=== PATIENT | female | born 1985 | race Caucasian/White ===

== ENCOUNTER 2017-01-15 19:55 | Emergency (ER) | payer OTHER ==
[~2017-01-15] VITALS: Ht 165.1 cm; Wt 91.2 kg
[~2017-01-15 19:55] MED LIST: ACETAMINOPHEN650 M3 PO; ADDERALL 5 MG TA5 MG PO; ASPIRIN EC325 MG PO; ATENOLOL50 MG PO; BACTRIM DS TAB1 EACH PO; CIPROFLOXACIN500 MG PO; CO Q-10400 MG PO; CORGARD80 MG PO; CYCLOBENZAPRINE10 MG PO; CYMBALTA30 MG PO; DULOXETINE HCL30 MG PO; FENTANYL1 EAC2 TD; FISH OIL-OMEGA1 EACH PO; GABAPENTIN300 MG PO; GLUCOSAMINE1000 MG PO; HYDROCHLOROTHIA25 GM MISC; HYDROCHLOROTHIA50 MG PO; IBUPROFEN200 M1 PO; JULEBER 28 DAY1 EACH PO; LEVOTHYROXINE100 MCG PO; LEVOTHYROXINE88 MCG PO; LYRICA50 MG PO; MACROBID 100 M100 MG PO; MELOXICAM15 MG PO; METOPROLOL SUCC50 MG PO; NADOLOL80 MG PO; NORCO 10-325 T1 EACH PO; NORCO 5-325 TA1 EACH PO; OXYCODONE HCL5 MG PO; PENICILLIN V P500 MG PO; POTASSIUM CHLO20 ME1 PO; PRILOSEC40 MG PO; PRISTIQ ER100 MG PO; PROMETHAZINE HC25 M1 PO; PYRIDIUM200 MG PO; SPIRONOLACTONE100 MG PO; SPIRONOLACTONE25 MG PO; TRAMADOL HCL50 MG PO
[2017-01-15] MEDS ORDERED: PYRIDIUM200 MG PO (20:30)
[2017-01-15] MEDS ORDERED: ZOFRAN ODT4 MG PO (22:51)
[2017-01-15] MEDS ORDERED: LOMOTIL TABLET1 EACH PO (22:51)
== END 2017-01-15 23:02 | disposition home or self-care (01) ==
LOC: ED 19:55
DX: K52.9 Noninfective gastroenteritis and colitis, unspecified (principal); E03.9 Hypothyroidism, unspecified; F17.200 Nicotine dependence, unspecified, uncomplicated; Z79.899 Other long term (current) drug therapy; Z88.1 Allergy status to other antibiotic agents; Z88.0 Allergy status to penicillin; Z91.030 Bee allergy status; Z87.442 Personal history of urinary calculi
CPT/HCPCS: 80053; 83690; 84703; 85025; 96361; 96374; 99283; J2405; J7030

== ENCOUNTER 2017-08-08 13:37 | Emergency (ER) | payer OTHER ==
[~2017-08-08] VITALS: Ht 165.1 cm; Wt 91.2 kg
[~2017-08-08 13:37] MED LIST changes: +LOMOTIL TABLET1 EACH PO; +ZOFRAN ODT4 MG PO
[2017-08-08] MEDS ORDERED: CYTOMEL5 MCG PO (13:53)
--- OUTSIDE RECORDS SUMMARY | 2017-08-08 14:11 | XMS | Clinical Summary ---
Demographics + + + | Address | [address] | | | [place] [address] | + + + | Home Phone | | + + + | Preferred Language | Unknown | + + + | Marital Status | Single | + + + | Shinto Affiliation | Unknown | + + + | Race | White | + + + | Ethnic Group | Not or | + + + Author + + + | Author | [facility] | + + + | Organization | [facility] | + + + | Address | Unknown | + + + | Phone | Unavailable | + + + Support + + +---------+ + | Name | Relationship | Address | Phone | + + +---------+ + | Cristopher Byrd | ECON | Unknown | | + + +---------+ + Care Team Providers + +------+ + | Care Director Of Dance Name | Role | Phone | + +------+ + | Myranda Faustin BRIM IRONER HAND | PP | Unavailable | + +------+ + Source Comments [facility] & [facility] Allergies + + + + + + | Active Allergy | Reactions | Severity | Noted | Comments | | | | | Date | | + + + + + + | Acetaminophen | Nausea and Vomiting | | 03/06/20 | | | | | | 16 | | + + + + + + | Amoxicillin | Stomach Upset | | 03/06/20 | Stomach issues | | | | | 16 | | + + + + + + | Azithromycin | | | 01/13/20 | | | | | | 09 | | + + + + + + | Ibuprofen | | | 01/13/20 | | | | | | 09 | | + + + + + + | Morphine | Nausea and Vomiting | | 06/18/19 | | | | | | 17 | | + + + + + + | Penicillins | Stomach Upset | | 03/06/20 | Stomach issues | | | | | 16 | | + + + + + + | Venom-Honey Bee | Anaphylaxis | High | 03/06/20 | | | | | | 16 | | + + + + + + Current Medications + + +--------+---------+------+------+-------+ | Prescription | Sig. | Disp. | Refills | Star | End | Statu | | | | | | t | Date | s | | | | | | Date | | | + + +--------+---------+------+------+-------+ | levothyroxine 100 | Take 100 mcg by | | 0 | 09/2 | | Activ | | mcg oral tablet | mouth once daily. | | | 2/20 | | e | | | | | | 16 | | | + + +--------+---------+------+------+-------+ | potassium chloride | | | 1 | 08/1 | | Activ | | SR 20 mEq oral | | | | 1/20 | | e | | tablet,ER | | | | 16 | | | | particles/crystals | | | | | | | + + +--------+---------+------+------+-------+ | meloxicam 15 mg | | | 1 | 09/1 | | Activ | | oral tablet | | | | 1/20 | | e | | | | | | 16 | | | + + +--------+---------+------+------+-------+ | nadolol 80 mg oral | | | 0 | 09/2 | | Activ | | tablet | | | | 20 | | e | | | | | | 16 | | | + + +--------+---------+------+------+-------+ | gabapentin 300 mg | | | 0 | 09/2 | | Activ | | oral capsule | | | | /20 | | e | | | | | | 16 | | | + + +--------+---------+------+------+-------+ | DULoxetine 30 mg | | | 0 | 09/2 | | Activ | | oral capsule,delayed | | | | /20 | | e | | release(DR/EC) | | | | 16 | | | + + +--------+---------+------+------+-------+ | LELIA 0.15-0.03 | Take 1 tablet by | | 0 | 09/2 | | Activ | | mg oral tablet | mouth once daily. | | | 06/30 | | e | | | | | | 16 | | | + + +--------+---------+------+------+-------+ | omeprazole 40 mg | | | | | | Activ | | oral capsule,delayed | | | | | | e | | release(DR/EC) | | | | | | | + + +--------+---------+------+------+-------+ | GLUCOSAMINE | Take by mouth. | | | | | Activ | | SULFATE (GLUCOSAMINE | | | | | | e | | ORAL) | | | | | | | + + +--------+---------+------+------+-------+ | nitrofurantoin | Take 100 mg by mouth | | 0 | 02/2 | | Activ | | monohydrate/macrocry | two times daily. | | | /20 | | e | | stal 100 mg oral | | | | 17 | | | | capsule | | | | | | | + + +--------+---------+------+------+-------+ | phenazopyridine | Take 1 tablet by | 30 | 1 | 02/2 | | Activ | | 100 mg oral tablet | mouth three times | tablet | | 4/20 | | e | | | daily as needed. | | | 17 | | | | | Administer after | | | | | | | | meals for 2 days. | | | | | | + + +--------+---------+------+------+-------+ | promethazine 12.5 | Take 1 tablet by | 30 | 1 | 02/2 | | Activ | | mg oral tablet | mouth four times | tablet | | 4/20 | | e | | | daily as needed for | | | 17 | | | | | nausea/vomiting. | | | | | | + + +--------+---------+------+------+-------+ | | Take 1 tablet by | 10 | 0 | 02/2 | | Activ | | HYDROcodone-acetamin | mouth every four | tablet | | 4/20 | | e | | ophen 5-325 mg oral | hours as needed. 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 | + + + | Night vision loss | 01/16/2009 | + + + | Vision loss | 01/16/2009 | + + + Social History + +-------+ +--------+------+ | Tobacco Use | Types | Packs/Day | Years | Date | | | | | Used | | + +-------+ +--------+------+ | Current Every Day | | | | | | Smoker | | | | | + +-------+ +--------+------+ + + | Comments: trying to quit | + + + + + | Sex Assigned at | Date Recorded | | | | + + + | Not on file | | + + + Last Filed Vital Signs + + + + | Vital Sign | Reading | Time Taken | + + + + | Blood Pressure | 100/80 | 07/04/2016 2:04 PM PST | + + + + | Pulse | 79 | 07/04/2016 2:04 PM PST | + + + + | Temperature | 37.2 C (99 F) | 07/04/2016 2:04 PM PST | + + + + | Respiratory Rate | - | - | + + + + | Oxygen Saturation | 96% | 07/04/2016 2:04 PM PST | + + + + | Inhaled Oxygen | - | - | | Concentration | | | + + + + | Weight | 100.3 kg (221 lb 1.6 | 07/04/2016 2:04 PM PST | | | oz) | | + + + + | Height | 165.1 cm (5' 5") | 07/04/2016 2:04 PM PST | + + + + | Body Mass Index | 36.79 | 07/04/2016 2:04 PM PST | + + + + Plan of Treatment + + + + + | Health Maintenance | Due Date | Last Done | Comments | + + + + + | PRECONCEPTION/CONTRA | | | | | CEPTION COUNSELING | 6 | | | + + + + + | INFLUENZA VACCINE | | 01/31/2016 | | | (FLU SHOT) | 7 | | | + + + + + Results Not on filefrom Last 3 Months
--- OUTSIDE RECORDS SUMMARY | 2017-08-08 14:11 | XMS | Clinical Summary ---
Demographics + + + | Address | [address] | | | [place] [address] | + + + | Home Phone | | + + + | Preferred Language | Unknown | + + + | Marital Status | Single | + + + | Latter Day Affiliation | Unknown | + + + | Race | White | + + + | Ethnic Group | Not or | + + + Author + + + | Author | [facility] | + + + | Organization | [facility] | + + + | Address | Unknown | + + + | Phone | Unavailable | + + + Support + + +---------+ + | Name | Relationship | Address | Phone | + + +---------+ + | Cristopher Byrd | ECON | Unknown | | + + +---------+ + Care Team Providers + +------+ + | Care Outsole Cementer Name | Role | Phone | + +------+ + | Myranda Faustin RERECORDING MIXER | PP | Unavailable | + +------+ + Source Comments [facility] Allergies + + + + + [...]
== END 2017-08-08 15:58 | disposition home or self-care (01) ==
LOC: ED 13:37
DX: S04.62XA Injury of acoustic nerve, left side, initial encounter (principal); E03.9 Hypothyroidism, unspecified; F17.200 Nicotine dependence, unspecified, uncomplicated; Z87.442 Personal history of urinary calculi; Z88.1 Allergy status to other antibiotic agents; Z91.030 Bee allergy status; Z88.0 Allergy status to penicillin; Z79.899 Other long term (current) drug therapy; W42.9XXA Exposure to other noise, initial encounter
CPT/HCPCS: 99282

== ENCOUNTER 2017-08-12 16:54 | Emergency (ER) | payer OTHER ==
[~2017-08-12] VITALS: Ht 165.1 cm; Wt 97.1 kg
[~2017-08-12 16:54] MED LIST changes: +CYTOMEL5 MCG PO
--- OUTSIDE RECORDS SUMMARY | 2017-08-12 16:58 | XMS | Clinical Summary ---
Demographics + + + | Address | [address] | | | [place] [address] | + + + | Home Phone [...] + + | Author | [facility] | + + + | Organization | [facility] | + + + | Address | Unknown | + + + | Phone | Unavailable | + + + Support + + +---------+ + | Name | Relationship | Address | Phone | + + +---------+ + | Cristopher Byrd | ECON | Unknown | | + + +---------+ + Care Team Providers + +------+ + | Care Junior Linux Systems Administrator Name | Role | Phone | + +------+ + | Myranda Faustin SUPERINTENDENT METER TESTS | PP | Unavailable | + +------+ + Source Comments [facility] Allergies + + + + + [...] 01/31/2016 | | | (FLU SHOT) | 8 | | | + + + + + Results Not on filefrom Last 3 Months
--- OUTSIDE RECORDS SUMMARY | 2017-08-12 16:58 | XMS | Clinical Summary ---
Demographics + + + | Address | [address] | | | [place] [address] | + + + | Home Phone | | + + + | Preferred Language | Unknown | + + + | Marital Status | Single | + + + | Temple Affiliation | Unknown | + + + | Race | White | + + + | Ethnic Group | Not or | + + + Author + + + | Author | [facility] | + + + | Organization | [facility] | + + + | Address | Unknown | + + + | Phone | Unavailable | + + + Support + + +---------+ + | Name | Relationship | Address | Phone | + + +---------+ + | Cristopher Byrd | ECON | Unknown | | + + +---------+ + Care Team Providers + +------+ + | Care Canvas Repairer Name | Role | Phone | + +------+ + | Myranda Faustin WAGE AND SALARY SPECIALIST | PP | Unavailable | + +------+ + Source Comments [facility] Allergies + + + + + [...]
[2017-08-12] MEDS ORDERED: PERCOCET 5-3251 EACH PO (17:48)
[2017-08-12] MEDS ORDERED: ZOFRAN ODT4 MG PO (17:48)
== END 2017-08-12 19:00 | disposition home or self-care (01) ==
LOC: ED 16:54
PROC: 2W3LX1Z Immobilization of Right Lower Extremity using Splint (ICD-10-PCS; principal; 2017-08-12)
DX: S82.434A Nondisplaced oblique fracture of shaft of right fibula, initial encounter for closed fracture (principal); E03.9 Hypothyroidism, unspecified; F17.200 Nicotine dependence, unspecified, uncomplicated; Z88.5 Allergy status to narcotic agent; Z88.1 Allergy status to other antibiotic agents; Z91.030 Bee allergy status; Z88.0 Allergy status to penicillin; Z79.899 Other long term (current) drug therapy; W18.30XA Fall on same level, unspecified, initial encounter
CPT/HCPCS: 29515; 73610; 96374; 99283; J1170

== ENCOUNTER 2017-08-14 18:13 | Emergency (ER) | payer OTHER ==
[~2017-08-14] VITALS: Ht 165.1 cm; Wt 96.2 kg
--- OUTSIDE RECORDS SUMMARY | ~2017-08-14 | XMS | Clinical Summary ---
Demographics + + + | Address | [address] | | | [place] [address] | + + + | Home Phone | | + + + | Preferred Language | Unknown | + + + | Marital Status | Single | + + + | Episcopal Affiliation | 1059 | + + + | Race | Unknown | + + + | Ethnic Group | Unknown | + + + Author + + + | Author | [facility] | + + + | Organization | [facility] | + + + | Address | Unknown | + + + | Phone | Unavailable | + + + Support + + +---------+ + | Name | Relationship | Address | Phone | + + +---------+ + | García Mercer | ECON | Unknown | | + + +---------+ + Care Team Providers + +------+ + | Care Quality Assurance Analyst Name | Role | Phone | + +------+ + | Clinic[facility] | PP | Unavailable | | Community | | | + +------+ + Allergies + + + + + + | Active Allergy | Reactions | Severity | Noted | Comments | | | | | Date | | + + + + + + | Acetaminophen | Nausea and Vomiting | Low | 05/13/19 | | | | | | 13 | | + + + + + + | Ibuprofen | Hives | High | 05/13/19 | | | | | | 13 | | + + + + + + | Azithromycin | Nausea and Vomiting | Low | 05/13/19 | | | | | | 13 | | + + + + + + Current Medications + + +--------+---------+------+------+-------+ | Prescription | Sig. | Disp. | Refills | Star | End | Statu | | | | | | t | Date | s | | | | | | Date | | | + + +--------+---------+------+------+-------+ | levothyroxine | Take 88 mcg by mouth | | | | | Activ | | (SYNTHROID, | daily. | | | | | e | | LEVOTHROID) 88 MCG | | | | | | | | tablet | | | | | | | + + +--------+---------+------+------+-------+ | | Take by mouth. | | | | | Activ | | Amphetamine-Dextroam | | | | | | e | | phetamine (ADDERALL | | | | | | | | PO) | | | | | | | + + +--------+---------+------+------+-------+ | NADOLOL PO | Take 80 mg by mouth. | | | | | Activ | | | | | | | | e | + + +--------+---------+------+------+-------+ | tramadol | Take 300 mg by mouth | | | | | Activ | | (ULTRAM-ER) 300 MG | daily. | | | | | e | | 24 hr tablet | | | | | | | + + +--------+---------+------+------+-------+ | | Take 25 mg by mouth | | | | | Activ | | hydrochlorothiazide | daily. | | | | | e | | (HYDRODIURIL) 25 MG | | | | | | | | tablet | | | | | | | + + +--------+---------+------+------+-------+ | promethazine | Take 50 mg by mouth | | | | | Activ | | (PHENERGAN) 50 MG | every 6 (six) hours | | | | | e | | tablet | as needed. | | | | | | + + +--------+---------+------+------+-------+ | potassium chloride | Take 10 mEq by mouth | | | | | Activ | | (K-DUR) 10 MEQ | 2 (two) times | | | | | e | | tablet | daily. | | | | | | + + +--------+---------+------+------+-------+ | minoxidil | Apply topically 2 | | | | | Activ | | (ROGAINE) 2 % | (two) times daily. | | | | | e | | external solution | | | | | | | + + +--------+---------+------+------+-------+ | potassium chloride | Take 1 tablet by | 28 | 0 | 05/2 | | Activ | | (K-DUR) 10 MEQ | mouth 2 (two) times | tablet | | 9/20 | | e | | tablet | daily with meals. | | | 14 | | | + + +--------+---------+------+------+-------+ Active Problems No known active problems Social History + +-------+ +--------+------+ | Tobacco Use | Types | Packs/Day | Years | Date | | | | | Used | | + +-------+ +--------+------+ | Current Some Day | | | 10 | | | Smoker | | | | | + +-------+ +--------+------+ + + +---------+ + | Alcohol Use | Drinks/We | oz/Week | Comments | | | ek | | | + + +---------+ + | Yes | | | rarely | + + +---------+ + + + + | Sex Assigned at | Date Recorded | | | | + + + | Not on file | | + + + Last Filed Vital Signs + + + + | Vital Sign | Reading | Time Taken | + + + + | Blood Pressure | 117/72 | 10/06/2013 7:59 AM PDT | + + + + | Pulse | 86 | 10/06/2013 7:59 AM PDT | + + + + | Temperature | 36.4 C (97.6 F) | 10/06/2013 7:59 AM PDT | + + + + | Respiratory Rate | 16 | 10/06/2013 7:59 AM PDT | + + + + | Oxygen Saturation | 98% | 10/06/2013 7:59 AM PDT | + + + + | Inhaled Oxygen | - | - | | Concentration | | | + + + + | Weight | 67.6 kg (149 lb) | 10/06/2013 4:49 AM PDT | + + + + | Height | 165.1 cm (5' 5") | 10/06/2013 4:49 AM PDT | + + + + | Body Mass Index | 24.79 | 10/06/2013 4:49 AM PDT | + + + + Plan of Treatment Not on file Results Not on filefrom Last 3 Months Insurance + +--------+ +------+-------+ + | Payer | Benefi | Subscriber | Type | Phone | Address | | | t Plan | ID | | | | | | / | | | | | | | Group | | | | | + +--------+ +------+-------+ + | MEDICAID | [employer] | xxxxxxxx | | | [address] | | | [place] | | | | [place] | | | [place] | | | | [phone] | | | [employer] | | | | | + +--------+ +------+-------+ + + +--------+ +--------+ + + | Guarantor Name | Accoun | Relation to | Date | Phone | Billing Address | | | t Type | Patient | of | | | | | | | | | | + +--------+ +--------+ + + | LAURA MILLS | Person | Self [birth year] Home: | [address] | | | al/Fam | | 1984 | [phone] | [address] [place] | | | [place] | | | [phone] | [phone] | + +--------+ +--------+ + +
--- OUTSIDE RECORDS SUMMARY | ~2017-08-14 | XMS | Clinical Summary ---
Demographics + + + | Address | [address] | | | [place] [address] | + + + | Home Phone | | + + + | Preferred Language | Unknown | + + + | Marital Status | Single | + + + | Methodist Affiliation | 1059 | + + + | Race | Unknown | + + + | Ethnic Group | Unknown | + + + Author + + + | Author | [facility] | | | [facility] | + + + | Organization | [facility] | | | [facility] [place] | + + + | Address | Unknown | + + + | Phone | Unavailable | + + + Support + + + + + | Name | Relationship | Address | Phone | + + + + + | Angela Mills | ECON | [address] | | | | | [place], [place] | | | | | [address] | | + + + + + | García Mercer | ECON | [address] | | | | | [place] | | | | | [address] | | + + + + + Care Team Providers + +------+ + | Care Account Management Specialist Name | Role | Phone | + +------+ + | Anuj Story MD | PP | | + +------+ + Allergies + + + + + + | Active Allergy | Reactions | Severity | Noted | Comments | | | | | Date | | + + + + + + | Acetaminophen | Nausea And Vomiting | | | | + + + + + + | Amoxicillin | | | | Stomach issues | + + + + + + | Azithromycin | Nausea And Vomiting | | | | + + + + + + | Bee Venom | | | 10/06/19 | | | | | | 13 | | + + + + + + | Morphine | Nausea And Vomiting | | 06/18/19 | | | | | | 17 | | + + + + + + | Penicillins | | | | Stomach issues | + + + + + + Current Medications + + +---------+---------+------+------+-------+ | Prescription | Sig. | Disp. | Refills | Star | End | Statu | | | | | | t | Date | s | | | | | | Date | | | + + +---------+---------+------+------+-------+ | promethazine | Take 50 mg by mouth | | | | | Activ | | (PHENERGAN) 25 mg | every 6 hours as | | | | | e | | tablet | needed. | | | | | | + + +---------+---------+------+------+-------+ | DULoxetine | Take 30 mg by mouth | | | | | Activ | | (CYMBALTA) 30 mg | 2 times daily. | | | | | e | | capsule | | | | | | | + + +---------+---------+------+------+-------+ | omeprazole | Take 1 capsule by | 60 | 2 | 08/ | | Activ | | (PRILOSEC) 40 MG | mouth 2 times daily. | capsule | | 9/20 | | e | | capsule | | | | 14 | | | + + +---------+---------+------+------+-------+ | meloxicam (MOBIC) | Take 15 mg by mouth | | | | | Activ | | 15 mg tablet | Daily. | | | | | e | + + +---------+---------+------+------+-------+ | potassium chloride | Take 20 mEq by mouth | | | | | Activ | | (K-DUR) 20 mEq ER | Daily. | | | | | e | | tablet | | | | | | | + + +---------+---------+------+------+-------+ | levothyroxine | Take 100 mcg by | | | | | Activ | | (SYNTHROID, | mouth every morning | | | | | e | | LEVOTHROID) 100 mcg | (before breakfast). | | | | | | | tablet | | | | | | | + + +---------+---------+------+------+-------+ | nadolol (CORGARD) | Take 80 mg by mouth | | | | | Activ | | 80 MG tablet | Daily. | | | | | e | + + +---------+---------+------+------+-------+ | Glucosamine HCl | Take 1,000 mg by | | | | | Activ | | (GLUCOSAMINE | mouth 2 times daily. | | | | | e | | HYDROCHLORIDE) 1,000 | | | | | | | | mg tablet | | | | | | | + + +---------+---------+------+------+-------+ | cholecalciferol | Take 1,000 Units by | | | | | Activ | | (VITAMIN D-3) 1,000 | mouth Daily. | | | | | e | | units tablet | | | | | | | + + +---------+---------+------+------+-------+ | aspirin 81 mg EC | Take 81 mg by mouth | | | | | Activ | | tablet | Daily. | | | | | e | + + +---------+---------+------+------+-------+ | | Take 1 tablet by | 90 | 3 | 03/1 | | Activ | | hydroCHLOROthiazide | mouth Daily. | tablet | | 4/20 | | e | | 50 mg tablet | | | | 17 | | | + + +---------+---------+------+------+-------+ | | Take 1 tablet by | | | | | Activ | | Sulfamethoxazole-Tri | mouth 2 times daily. | | | | | e | | methoprim (BACTRIM | | | | | | | | DS PO) | | | | | | | + + +---------+---------+------+------+-------+ | pregabalin | Take 150 mg by mouth | | | | | Activ | | (LYRICA) 150 MG | 2 times daily. | | | | | e | | capsule | | | | | | | + + +---------+---------+------+------+-------+ | | take 1 tablet by | 90 | 3 | | | Activ | | hydroCHLOROthiazide | mouth once daily | tablet | | 05/30 | | e | | 50 mg tablet | | | | 17 | | | + + +---------+---------+------+------+-------+ Active Problems + + + | Problem | Noted Date | + + + | Hx of diagnostic tests | 07/23/2016 | + + + + + | Overview: Echo 03/21/13, LVEF 55%, Normal Study. St | | Dr Waleska Bone. | + + + + + | Tachycardia | 07/23/2016 | + + + + + | Overview: Holter Monitor 02/15/07, [facility], | | [place]. 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 | + + + | Heart murmur | 06/18/2016 | + + + | Ventricular tachycardia (HCC) | 06/18/2016 | + + + | Gastroparesis | 06/18/2016 | + + + | Kidney stone 2014 | 06/18/2016 | + + + | Cardiac arrhythmia | 06/18/2016 | + + + | PAIN IN JOINT, MULTIPLE SITES | 08/04/2011 | + + + | SUPRAVENTRICULAR TACHYCARDIA, HX OF | 08/04/2011 | + + + | FIBROMYALGIA | 05/20/2011 | + + + | DEPRESSION | 05/20/2011 | + + + | ATTENTION DEFICIT DISORDER, ADULT | 05/20/2011 | + + + | ENDOMETRIOSIS | 05/06/2011 | + + + | MALAISE AND FATIGUE | 04/28/2011 | + + + | FAMILY HISTORY OF ASTHMA | | + + + | FH DEPRESSION | | + + + | Rectal bleeding | | + + + | Jessie-Danlos syndrome | | + + + + + | Overview: CAPRI [id number] Decision | + + + +---+ | Abdominal pain, left lower quadrant | | + +---+ | Sleepiness | | + +---+ | Sleep paralysis | | + +---+ | Cataplexy | | + +---+ | Cataplexy | | + +---+ | PTSD (post-traumatic stress disorder) | | + +---+ + + | Overview: Probable | + + + +---+ | Organic insomnia | | + +---+ Family History + + +------+ + | Medical History | Relation | Name | Comments | + + +------+ + | Other (see comment) | Brother | | chronic pain | + + +------+ + | Arthritis | Mother | | | + + +------+ + | Rheum arthritis | Mother | | | + + +------+ + | Arthritis | Other | | RHEUMATOID | + + +------+ + | Asthma | Other | | | + + +------+ + | Cancer | Other | | UTERINE; LUNG; PANCREATIC | + + +------+ + | Depression | Other | | | + + +------+ + | Heart disease | Other | | | + + +------+ + | High blood pressure | Other | | | + + +------+ + | Stroke | Other | | | + + +------+ + | Other (see comment) | Sister | | Jessie-Praveen vascular type | + + +------+ + + +------+--------+ + | Relation | Name | Status | Comments | + +------+--------+ + | Brother | | Alive | | + +------+--------+ + | Father | | Alive | | + +------+--------+ + | Mother | | Alive | | + +------+--------+ + | Other | | | | + +------+--------+ + | Sister | | Alive | | + +------+--------+ + Social History + + + +--------+------+ | Tobacco Use | Types | Packs/Day | Years | Date | | | | | Used | | + + + +--------+------+ | Light Tobacco Smoker | Cigarettes | | 10 | | + + + +--------+------+ + +---+---+---+ | Smokeless Tobacco: | | | | | Never Used | | | | + +---+---+---+ + + | Comments: PATIENT SHAS SMOKED 12 YEARS | + + + + +---------+ + | Alcohol Use | Drinks/We | oz/Week | Comments | | | ek | | | + + +---------+ + | Yes | 0 | 0.0 | rare | | | Standard | | | | | drinks or | | | | | | | | | | equivalen | | | | | t | | | + + +---------+ + + + + | Sex Assigned at | Date Recorded | | | | + + + | Not on file | | + + + Last Filed Vital Signs + + + + | Vital Sign | Reading | Time Taken | + + + + | Blood Pressure | 112/71 | 10/14/2016 1559 PDT | + + + + | Pulse | 86 | 10/14/2016 1559 PDT | + + + + | Temperature | 36.4 C (97.6 F) | 10/27/2012 1542 PDT | + + + + | Respiratory Rate | 14 | 07/22/2016 1531 PDT | + + + + | Oxygen Saturation | 97% | 03/17/2013 1618 PST | + + + + | Inhaled Oxygen | - | - | | Concentration | | | + + + + | Weight | 97.1 kg (214 lb) | 10/14/20161558 PDT | + + + + | Height | 165.1 cm (5' 5") | 10/14/20161558 PDT | + + + + | Body Mass Index | 35.61 | 10/14/20161558 PDT | + + + + Plan of Treatment + + + + + | Health Maintenance | Due Date | Last Done | Comments | + + + + + | Vaccine: | | | | | Dtap/Tdap/Td (1 - | 5 | | | | Tdap) | | | | + + + + + | Vaccine: | | | | | Pneumococcal 19-64 | 5 | | | | (PPSV23 only) Medium | | | | | Risk (1 of 1 - | | | | | PPSV23) | | | | + + + + + | CERVICAL CANCER | | 06/25/2010 | | | SCREENING (PAP EVERY | 4 | | | | 3 YEARS 21-64 ) | | | | + + + + + | Vaccine: Influenza | | | | | (Season Ended) | 8 | | | + + + + + Results Not on filefrom Last 3 Months Insurance + +--------+ +--------+ +---------+ | Payer | Benefi | Subscriber | Type | Phone | Address | | | t Plan | ID | | | | | | / | | | | | | | Group | | | | | + +--------+ +--------+ +---------+ | [employer] | [employer] | xxxxxxxx | Medica | [id number] | | MEDICAID HMO | HEALTH | | id | [phone] | | | | [place] | | | | | | | [place] | | | | | + +--------+ +--------+ +---------+ + +--------+ +--------+ + + | Guarantor Name | Accoun | Relation to | Date | Phone | Billing Address | | | t Type | Patient | of | | | | | | | | | | + +--------+ +--------+ + + | LAURA MILLS | Person | Self [birth year] | Home: | [address] | | | al/Fam | | 1985 | [phone] [place] [address] | | | [place] | | | [phone] | | + +--------+ +--------+ + +
--- OUTSIDE RECORDS SUMMARY | ~2017-08-14 | XMS | Clinical Summary ---
Demographics + + + | Address | [address] | | | [place] [address] | + + + | Home Phone | | + + + | Preferred Language | Unknown | + + + | Marital Status | Single | + + + | Baptism Affiliation | Unknown | + + + | Race | White | + + + | Ethnic Group | Not or | + + + Author + + + | Author | [facility] | + + + | Organization | [facility] | + + + | Address | Unknown | + + + | Phone | Unavailable | + + + Support + + +---------+ + | Name | Relationship | Address | Phone | + + +---------+ + | Cristopher Byrd | ECON | Unknown | | + + +---------+ + Care Team Providers + +------+ + | Care Field Project Manager Name | Role | Phone | + +------+ + | Myranda Faustin SLIVER CUTTER | PP | Unavailable | + +------+ + Source Comments [facility] Allergies + + + [...]
--- OUTSIDE RECORDS SUMMARY | ~2017-08-14 | XMS | Clinical Summary ---
Demographics + + + | Address | [address] | | | [place] [address] | + + + | Home Phone [...] + + | Author | [facility] | + + + | Organization | [facility] | + + + | Address | Unknown | + + + | Phone | Unavailable | + + + Support + + +---------+ + | Name | Relationship | Address | Phone | + + +---------+ + | Cristopher Byrd | ECON | Unknown | | + + +---------+ + Care Team Providers + +------+ + | Care Senior Research Manager Name | Role | Phone | + +------+ + | Myranda Faustin BOILER HOUSE INSPECTOR | PP | Unavailable | + +------+ + Source Comments [facility] and [facility] Allergies + + + + [...]
--- OUTSIDE RECORDS SUMMARY | ~2017-08-14 | XMS | Clinical Summary ---
Demographics + + + | Address | [address] | | | [place] [address] | + + + | Home Phone | | + + + | Preferred Language | Unknown | + + + | Marital Status | Single | + + + | Catholic Affiliation | 1059 | + + + | Race | Unknown | + + + | Ethnic Group | Unknown | + + + Author + + + | Author | [facility] | + + + | Organization | [facility] | + + + | Address | Unknown | + + + | Phone | Unavailable | + + + Support + + +---------+ + | Name | Relationship | Address | Phone | + + +---------+ + | García Mercer | ECON | Unknown | | + + +---------+ + Care Team Providers + +------+ + | Care Assembler Corncob Pipes Name | Role | Phone | + +------+ + | [facility] | PP | Unavailable | | [...] | | [place] | | | | [address] | | | REELER OPERATOR | | | | | + +--------+ [...] | | | [place] | | | [phone] | [phone] | + +--------+ +--------+ + +
--- OUTSIDE RECORDS SUMMARY | ~2017-08-14 | XMS | Clinical Summary ---
Demographics + + + | Address | [address] | | | [place] [address] | + + + | Home Phone | | + + + | Preferred Language | Unknown | + + + | Marital Status | Single | + + + | Hindu Affiliation | 1059 | + + + | Race | Unknown | + + + | Ethnic Group | Unknown | + + + Author + + + | Author | [facility] | | | and [place] | + + + | Organization | [facility] | | | and [...] [place], [place] | | | | | [address] | | + + + + + | García Mercer | ECON | [address] | | | | | [place] | | | | | [address] | | + + + + + Care Team Providers + +------+ + | Care Roller Repairer Name | Role | Phone | [...] + + + + | Overview: CAPRI [id number] Decision | + + + +---+ | [...] | MODA | [id number] | Medica | [phone] | | MEDICAID HMO | HEALTH [...] | 1985 | [phone] | [place] [address] | | | [place] | | | [phone] | | + +--------+ +--------+ + +
[~2017-08-14 18:13] MED LIST changes: +PERCOCET 5-3251 EACH PO
== END 2017-08-14 20:54 | disposition home or self-care (01) ==
LOC: ED 18:13
DX: S93.402A Sprain of unspecified ligament of left ankle, initial encounter (principal); S82.831D Other fracture of upper and lower end of right fibula, subsequent encounter for closed fracture with routine healing; E03.9 Hypothyroidism, unspecified; F17.200 Nicotine dependence, unspecified, uncomplicated; Z87.442 Personal history of urinary calculi; Z88.5 Allergy status to narcotic agent; Z88.1 Allergy status to other antibiotic agents; Z91.030 Bee allergy status; Z88.0 Allergy status to penicillin; Z79.899 Other long term (current) drug therapy; W18.30XA Fall on same level, unspecified, initial encounter
CPT/HCPCS: 73610; 99283